=== PATIENT | male | born 2000 | race Caucasian/White ===

== ENCOUNTER 2021-11-06 08:55 | Emergency (ER) | payer SELFPAY ==
[2021-11-06 08:59] VITALS: BP 146/99
== END 2021-11-06 10:12 | disposition home or self-care (01) ==
LOC: ED 08:55
DX: R51.9 Headache, unspecified (principal); J45.909 Unspecified asthma, uncomplicated; F17.200 Nicotine dependence, unspecified, uncomplicated; X31.XXXA Exposure to excessive natural cold, initial encounter